=== PATIENT | male | born 1945 | race Caucasian/White ===

== ENCOUNTER 2022-06-15 10:35 | Day surgery (SDC) | payer OTHER ==
[2022-06-15] MEDS ORDERED: LIDOCAINE HCL 2% 100 MG/5 ML IJ ONE (10:36)
[2022-06-15] MEDS ORDERED: Depo-Medrol 40 MG/ML IM ONE (10:36)
[2022-06-15] MEDS ORDERED: DIPRIVAN 200 MG/20 ML IV ONE (13:01)
[2022-06-15] MEDS ORDERED: Lactated Ringers 1,000 ML IV ONE (13:31)
--- NOTE | 2022-06-15 14:16 | XRAY ---
Indication: Bilateral L4-S1 MBB. Intraoperative fluoroscopy provided for 9 seconds. Single digital spot image submitted for interpretation demonstrates posterior needle tips projecting over the expected left and right L4-S1 nerve roots. Correlate with intraoperative findings/report.
--- NOTE | 2022-06-15 14:18 | XRAY ---
9 seconds of fluoroscopy was used in surgery for a bilateral L4-S1 MBB.
== END 2022-06-15 13:32 | disposition home or self-care (01) ==
LOC: SDC-PAIN 10:35
PROVIDERS: ATTEND Psychiatry & Neurology Pain Medicine
DX: M47.816 Spondylosis without myelopathy or radiculopathy, lumbar region (principal); E11.9 Type 2 diabetes mellitus without complications; Z79.899 Other long term (current) drug therapy
CPT/HCPCS: 64493; 64494; 72020; 77002; 82947; J1030; J2704

== ENCOUNTER 2022-09-21 07:15 | Day surgery (SDC) | payer OTHER ==
[2022-09-21] MEDS ORDERED: Depo-Medrol 40 MG/ML IM ONE (07:16)
[2022-09-21] MEDS ORDERED: BUPIVACAINE 0.5% VIAL IJ ONE (07:16)
[2022-09-21] MEDS ORDERED: DIPRIVAN 200 MG/20 ML IV ONE (08:36)
--- NOTE | 2022-09-21 09:37 | XRAY ---
Indication: Bilateral L4-S1 MBB. Intraoperative fluoroscopy provided for 21 seconds. Single digital spot image submitted for interpretation demonstrates posterior needle tips projecting over the expected left and right L4-S1 nerve roots. Correlate with intraoperative findings/report.
[2022-09-21] MEDS ORDERED: Lactated Ringers 1,000 ML IV ONE (14:43)
== END 2022-09-21 09:15 | disposition home or self-care (01) ==
LOC: SDC-PAIN 07:15
PROVIDERS: ATTEND Psychiatry & Neurology Pain Medicine
DX: M47.816 Spondylosis without myelopathy or radiculopathy, lumbar region (principal); E11.9 Type 2 diabetes mellitus without complications; Z79.899 Other long term (current) drug therapy
CPT/HCPCS: 64493; 64494; 72020; 77002; 82947; J1030; J2704

== ENCOUNTER 2022-10-26 06:44 | Day surgery (SDC) | payer OTHER ==
[2022-10-26] MEDS ORDERED: BUPIVACAINE 0.5% VIAL IJ ONE (06:45)
[2022-10-26] MEDS ORDERED: Depo-Medrol 40 MG/ML IM ONE (06:45)
[2022-10-26] MEDS ORDERED: LIDOCAINE HCL 1% 50 MG/5 ML VL PF IJ ONE (06:45)
[2022-10-26] MEDS ORDERED: DIPRIVAN 200 MG/20 ML IV ONE (08:09)
[2022-10-26] MEDS ORDERED: Lactated Ringers 1,000 ML IV ONE (13:31)
--- NOTE | 2022-10-26 13:40 | XRAY ---
Indication: Right L4-S1 RFA Intraoperative fluoroscopy provided for 23 seconds. 7 digital spot image submitted for interpretation demonstrates posterior needle tips projecting over the expected right L4-S1 nerve roots. Correlate with intraoperative findings/report.
--- NOTE | 2022-10-26 13:56 | XRAY ---
23 seconds of fluoroscopy was used in surgery for a right L4-S1 RFA.
== END 2022-10-26 08:40 | disposition home or self-care (01) ==
LOC: SDC-PAIN 06:44
PROVIDERS: ATTEND Psychiatry & Neurology Pain Medicine
DX: M47.816 Spondylosis without myelopathy or radiculopathy, lumbar region (principal); E11.9 Type 2 diabetes mellitus without complications; Z79.899 Other long term (current) drug therapy
CPT/HCPCS: 64635; 64636; 72100; 77002; 82947; J1030; J2001; J2704

== ENCOUNTER 2022-11-09 06:43 | Day surgery (SDC) | payer OTHER ==
[2022-11-09] MEDS ORDERED: Depo-Medrol 40 MG/ML IM ONE (06:44)
[2022-11-09] MEDS ORDERED: LIDOCAINE HCL 1% 50 MG/5 ML VL PF IJ ONE (06:44)
[2022-11-09] MEDS ORDERED: BUPIVACAINE 0.5% VIAL IJ ONE (06:44)
[2022-11-09] MEDS ORDERED: DIPRIVAN 200 MG/20 ML IV ONE (08:07)
[2022-11-09] MEDS ORDERED: Lactated Ringers 1,000 ML IV ONE (13:05)
--- NOTE | 2022-11-09 18:35 | XRAY ---
Indication: Left L4-S1 RFA. Intraoperative fluoroscopy provided for 21 seconds. 4 digital spot image submitted for interpretation demonstrates posterior needle tips projecting over the expected left L4-S1 nerve roots. Correlate with intraoperative findings/report.
--- NOTE | 2022-11-09 18:56 | XRAY ---
21 seconds of fluoroscopy was used in surgery for a left L4-S1 RFA.
== END 2022-11-09 08:43 | disposition home or self-care (01) ==
LOC: SDC-PAIN 06:43
PROVIDERS: ATTEND Psychiatry & Neurology Pain Medicine
DX: M47.816 Spondylosis without myelopathy or radiculopathy, lumbar region (principal); E11.9 Type 2 diabetes mellitus without complications; Z79.899 Other long term (current) drug therapy
CPT/HCPCS: 64635; 64636; 72100; 77002; 82947; 99100; J1030; J2001; J2704

== ENCOUNTER 2022-12-14 07:17 | Day surgery (SDC) | payer OTHER ==
[2022-12-14] MEDS ORDERED: Depo-Medrol 40 MG/ML IM ONE (07:18)
[2022-12-14] MEDS ORDERED: BUPIVACAINE 0.5% VIAL IJ ONE (07:18)
[2022-12-14] MEDS ORDERED: DIPRIVAN 200 MG/20 ML IV ONE (09:18)
--- NOTE | 2022-12-14 10:58 | XRAY ---
Indication: Right SI joint and right greater trochanter bursa injection. Intraoperative fluoroscopy provided for 16 seconds. 3 digital spot images obtained prone submitted for interpretation demonstrates posterior needle tip projecting over the right SI joint. Second needle tip lateral to right greater trochanter with small amount of contrast injected for needle tip placement. Correlate with intraoperative findings/report.
[2022-12-14] MEDS ORDERED: Lactated Ringers 1,000 ML IV ONE (11:05)
--- NOTE | 2022-12-14 13:36 | XRAY ---
16 seconds of fluoroscopy was used in surgery for a right sacroiliac joint and right greater trochanteric bursa injection.
== END 2022-12-14 09:53 | disposition home or self-care (01) ==
LOC: SDC-PAIN 07:17
PROVIDERS: ATTEND Psychiatry & Neurology Pain Medicine
DX: M46.1 Sacroiliitis, not elsewhere classified (principal); M70.61 Trochanteric bursitis, right hip; E11.9 Type 2 diabetes mellitus without complications; Z79.899 Other long term (current) drug therapy
CPT/HCPCS: 20610; 27096; 73501; 77002; 82947; G0260; 99100; J1030; J2704; Q9966

== ENCOUNTER 2023-05-24 06:40 | Day surgery (SDC) | payer OTHER ==
[2023-05-24] MEDS ORDERED: BUPIVACAINE 0.5% VIAL IJ ONE (06:41)
[2023-05-24] MEDS ORDERED: Depo-Medrol 40 MG/ML IM ONE (06:41)
[2023-05-24] MEDS ORDERED: DIPRIVAN 200 MG/20 ML IV ONE (08:23)
[2023-05-24] MEDS ORDERED: Lactated Ringers 1,000 ML IV ONE (09:20)
--- NOTE | 2023-05-24 09:52 | XRAY ---
Indication: Left SI joint and left greater trochanter bursa injection. Intraoperative fluoroscopy provided for 20 seconds. 4 digital spot images submitted for interpretation demonstrates posterior needle tip projecting over left SI joint. Second needle tip lateral to left greater trochanter with small amount of contrast injected for needle tip placement. Correlate with intraoperative findings/report.
--- NOTE | 2023-05-24 10:04 | XRAY ---
20 seconds of fluoroscopy was used in surgery for a left greater trochanteric bursa and left sacroiliac joint injection.
== END 2023-05-24 08:52 | disposition home or self-care (01) ==
LOC: SDC-PAIN 06:40
PROVIDERS: ATTEND Psychiatry & Neurology Pain Medicine
DX: M16.12 Unilateral primary osteoarthritis, left hip (principal); M46.1 Sacroiliitis, not elsewhere classified; E11.9 Type 2 diabetes mellitus without complications
CPT/HCPCS: 01992; 20610; 27096; 73502; 77002; 82947; 99100; G0260; J1030; J2704; Q9966

== ENCOUNTER 2023-09-20 15:04 | Day surgery (SDC) | payer OTHER ==
[2023-09-20] MEDS ORDERED: Depo-Medrol 40 MG/ML IM ONE (15:05)
[2023-09-20] MEDS ORDERED: XYLOCAINE-MPF 1% 5ML SDV IJ ONE (15:05)
[2023-09-20] MEDS ORDERED: BUPIVACAINE 0.5% VIAL IJ ONE (15:05)
--- NOTE | 2023-09-20 20:08 | XRAY ---
Indication: Right shoulder injection. Intraoperative fluoroscopy provided for 11 seconds. Single digital spot images submitted for interpretation demonstrates anterior needle tip projecting over the right glenohumeral joint superiorly. Small amount of contrast injected for needle tip placement. Correlate with intraoperative findings/report.
--- NOTE | 2023-09-20 20:08 | XRAY ---
Indication: Left shoulder injection. Intraoperative fluoroscopy provided for 6 seconds. Single digital spot images submitted for interpretation demonstrates anterior needle tip projecting over the left glenohumeral joint superiorly. Small amount of contrast injected for needle tip placement. Correlate with intraoperative findings/report.
--- NOTE | 2023-09-21 09:18 | XRAY ---
11 seconds of fluoroscopy was used in surgery for a right intra-articular shoulder injection.
--- NOTE | 2023-09-21 09:19 | XRAY ---
6 seconds of fluoroscopy was used in surgery for a left intra-articular shoulder injection.
== END 2023-09-20 17:26 | disposition home or self-care (01) ==
LOC: SDC-PAIN 15:04
PROVIDERS: ATTEND Psychiatry & Neurology Pain Medicine
DX: M19.012 Primary osteoarthritis, left shoulder (principal); M19.011 Primary osteoarthritis, right shoulder; E11.9 Type 2 diabetes mellitus without complications
CPT/HCPCS: 20610; 73030; 77002; 82947; J1010; Q9966